=== PATIENT | male | born 1960 | race Caucasian/White ===

== ENCOUNTER 2017-01-12 08:52 | Observation (INO) ==
[2017-01-12] MEDS ORDERED: 0.9 % SODIUM CHLORIDE 1,000 ML IV ONE ×2 (09:21→17:20)
[2017-01-12] MEDS ORDERED: 0.9 % SODIUM CHLORIDE 2,000 ML IV ONE (09:27)
[2017-01-12] MEDS ORDERED: PROMETHAZINE 25 MG/ML VIAL IV ONE ×2 (09:27→12:48)
--- NOTE | 2017-01-12 09:33 | Emergency Department Note ---
Nausea/Vomiting/Diarrhea HPI - General Chief complaint: Nausea/Vomiting/Diarrhea Stated complaint: Vomiting Time Seen by Provider: 01/12/17 09:27 Source: patient Mode of arrival: ambulatory Limitations: no limitations - History of Present Illness HPI Narrative: 56-year-old male with a four-day history of nausea vomiting and diarrhea. Zofran does seem to help some but does not prevent him from throwing up whatever he tries to eat. No shortness of breath. Some heart flutter. Last bowel movement was the day after onset. Since then he's had a few diarrhea squirts but that's it - Related Data Home Medications Medication Instructions Recorded Confirmed metFORMIN HCL [Metformin HCl ER] 500 mg PO 01/10/17 Previous Rx's Medication Instructions Recorded Ondansetron HCl [Zofran ODT] 4 mg SL Q4-6HP PRN #10 tablet 01/10/17 Allergies Allergy/AdvReac Type Severity Reaction Status Date / Time No Known Drug Allergies Allergy Unverified 01/10/17 17:14 Review of Systems All systems ED: reviewed and negative except as stated. Past Medical History - Past Medical History Attestation: Yes: The following information was validated with the patient. Medical history: Reports: diabetes Surgical history ED: Reports: other (blood clots in his head when he was a baby were evacuated) - Social History smoking status: Smokeless tobacco Physical Exam Thin male no acute distress. Conjunctiva clear sclerae white and anicteric. No nasal discharge or congestion. Oropharynx is pink and moist. Neck is supple without lymphadenopathy or thyromegaly. Heart is regular rate and rhythm no murmurs appreciated. Lungs are clear to auscultation bilaterally without wheezes rales rhonchi or respiratory distress. Abdomen soft and flat nondistended. Mildly tender diffusely. No guarding or rebound. +2 radial pulses. No pedal edema. - General Limitations: no limitations Course Vital Signs Temperature 97.1 F L 01/12/17 08:53 Pulse Rate 70 01/12/17 08:53 Respiratory Rate 20 01/12/17 08:53 Blood Pressure 193/88 01/12/17 08:53 Pulse Oximetry (%) 100 01/12/17 08:53 Temperature 97.1 F L 01/12/17 08:53 Pulse Rate 78 01/12/17 10:05 Respiratory Rate 20 01/12/17 10:05 Blood Pressure 172/80 01/12/17 10:05 Pulse Oximetry (%) 100 01/12/17 10:05 Nausea/Vomiting/Diarrhea - Lab Data Result diagrams: 01/12/17 09:36 01/12/17 09:36 Lab Results 01/12/17 Range/Units 09:36 WBC 8.3 (4.5-11.0) K/mcL RBC 5.32 (4.50-5.90) M/mcL Hgb 16.4 (13.5-16.5) g/dL Hct 49.5 (41.0-55.0) % MCV 93.0 (80.0-100.0) fL MCH 30.7 (26.0-34.0) pg MCHC 33.0 (31.0-36.0) g/dL RDW 13.0 (11.5-14.5) % Plt Count 255 (140-440) K/mcL MPV 7.6 (7.4-10.4) fL Gran % 67.1 (38.0-78.0) % Lymph % (Auto) 22.0 (15.5-49.0) % [place] % (Auto) 9.6 H (1.0-9.0) % Eos % (Auto) 1.0 (0.0-7.0) % Baso % (Auto) 0.3 (0.0-2.0) % Gran # 5.5 (1.8-8.0) K/mcL Lymph # 1.8 (1.5-4.8) K/mcL [place] # 0.8 (0.1-0.9) K/mcL Eos # 0.1 (0.0-0.7) K/mcL Baso # 0 (0.0-0.3) K/mcL - Radiology Data Radiology results reviewed: Yes I reviewed the patient's radiology results. bdominal x-ray series shows nonspecific bowel gas pattern Disposition Summary: Checked patient out to Dr. Benitez for further care and evaluation Disposition: Still a Patient Condition: Undetermined
--- NOTE | 2017-01-12 10:09 | XRay Report ---
HISTORY: Reason for Exam:vomiting FINDINGS: The bowel gas pattern is normal. The lung bases are clear. No free intra-abdominal air is present. No abnormal soft tissue mass is seen. There are vascular calcifications in the pelvis and there are also calcifications in the vas deferens. IMPRESSION: Normal exam Interpreted and Authenticated by: Stevan Prieto 01/12/17
[2017-01-12 10:19] LABS: Basophils # (Auto) 0 K/mcL (0.0-0.3); Basophils % (Auto) 0.3 % (0.0-2.0); Eosinophils # (Auto) 0.1 K/mcL (0.0-0.7); Granulocytes % (Auto) 67.1 % (38.0-78.0); Lymphocytes # (Auto) 1.8 K/mcL (1.5-4.8); Mean Corpuscular Hemoglobin 30.7 pg (26.0-34.0); Monocytes # (Auto) 0.8 K/mcL (0.1-0.9); Monocytes % (Auto) 9.6 % (1.0-9.0); Platelet Count 255 K/mcL (140-440); RBC 5.32 M/mcL (4.50-5.90)
[2017-01-12 10:45] LABS: ALT/SGPT 17 U/l (0-40); Albumin 4.5 gm/dL (3.2-5.2); Albumin/Globulin Ratio 1.4 (1.0-2.3); Alkaline Phosphatase 55 U/L (39-117); Blood Urea Nitrogen 20 mg/dl (6-20); Lipase 114 U/L (7-60)
[2017-01-12 12:30] LABS: Appearance,Urine CLEAR; Bacteria,Urine 0 /hpf (0); Bilirubin,Urine NEG (NEG); Color,Urine YELLOW; Glucose,Urine (UA) >=500 mg/dL (NEG); Leukocyte Esterase,Urine NEG /uL (NEG); Mucus,Urine FEW /hpf (0); Nitrate,Urine NEG (NEG); Protein,Urine 100 mg/dL (NEG); Specific Gravity,Urine 1.026 (1.000-1.035); Urine Blood 0.2 mg/dL (<0.03); Urine Hyaline Cast 1 /lpf (0-2); Urine RBC 29 /hpf (0-1); Urine Squamous Epithelial Cell 0 /hpf (0-4); Urine WBC 3 /hpf (0-4); Urobilinogen,Urine NEG (NEG)
--- NOTE | 2017-01-12 14:08 | Emergency Department Note ---
Nausea/Vomiting/Diarrhea HPI - General Chief complaint: Nausea/Vomiting/Diarrhea Stated complaint: Vomiting Time Seen by Provider: 01/12/17 09:27 Source: patient Mode of arrival: ambulatory Limitations: no limitations - Related Data Home Medications Medication Instructions Recorded Confirmed metFORMIN HCL [Metformin HCl ER] 500 mg PO 01/10/17 Previous Rx's Medication Instructions Recorded Ondansetron HCl [Zofran ODT] 4 mg SL Q4-6HP PRN #10 tablet 01/10/17 Promethazine HCl [Phenergan] 25 mg [place] TIDP PRN #10 supp.rect 01/12/17 Allergies Allergy/AdvReac Type Severity Reaction Status Date / Time No Known Drug Allergies Allergy Unverified 01/10/17 17:14 Past Medical History - Past Medical History Medical history: Reports: diabetes Surgical history ED: Reports: other (blood clots in his head when he was a baby were evacuated) Physical Exam - General Limitations: no limitations Course Vital Signs Temperature 97.1 F L 01/12/17 08:53 Pulse Rate 70 01/12/17 08:53 Respiratory Rate 20 01/12/17 08:53 Blood Pressure 193/88 01/12/17 08:53 Pulse Oximetry (%) 100 01/12/17 08:53 Temperature 97.1 F L 01/12/17 08:53 Pulse Rate 78 01/12/17 12:54 Respiratory Rate 20 01/12/17 12:54 Blood Pressure 172/80 01/12/17 12:54 Pulse Oximetry (%) 100 01/12/17 12:54 Nausea/Vomiting/Diarrhea - MDM Narrative Medical decision making narrative: Patient of Dr. Cochran who is been observed to see female brought to keep liquids down. He's had no vomiting on the ED and given fluid resuscitation. Asystole much improved. He would like to try to go home. The amylase was elevated. He does state that he drank 4-5 beers prior to the episodes. of vomitting. No vomitting while in ED for 4-5 h.he would like to go home, but advised to return if any s/sx of dehydration - Lab Data Result diagrams: 01/12/17 09:36 01/12/17 09:36 Lab Results 01/12/17 01/12/17 01/12/17 Range/Units 09:36 09:36 11:32 WBC 8.3 (4.5-11.0) K/mcL RBC 5.32 (4.50-5.90) M/mcL Hgb 16.4 (13.5-16.5) g/dL Hct 49.5 (41.0-55.0) % MCV 93.0 (80.0-100.0) fL MCH 30.7 (26.0-34.0) pg MCHC 33.0 (31.0-36.0) g/dL RDW 13.0 (11.5-14.5) % Plt Count 255 (140-440) K/mcL MPV 7.6 (7.4-10.4) fL Gran % 67.1 (38.0-78.0) % Lymph % (Auto) 22.0 (15.5-49.0) % [place] % (Auto) 9.6 H (1.0-9.0) % Eos % (Auto) 1.0 (0.0-7.0) % Baso % (Auto) 0.3 (0.0-2.0) % Gran # 5.5 (1.8-8.0) K/mcL Lymph # 1.8 (1.5-4.8) K/mcL [place] # 0.8 (0.1-0.9) K/mcL Eos # 0.1 (0.0-0.7) K/mcL Baso # 0 (0.0-0.3) K/mcL Sodium 139 (133-145) mmol/L Potassium 3.4 (3.3-5.1) mmol/L Chloride 92 L (96-108) mmol/L Carbon Dioxide 22 (22-30) mmol/L Anion Gap 25.0 H (8-16) BUN 20 (6-20) mg/dl Creatinine 0.8 (0.7-1.2) mg/dl GFR Calculation 101 Glucose 210 H (70-105) mg/dL Calcium 8.8 (8.6-10.4) mg/dl Total Bilirubin 1.2 H (0.0-1.0) mg/dL AST 18 (0-37) U/l ALT 17 (0-40) U/l Alkaline Phosphatase 55 (39-117) U/L Total Protein 7.7 (5.9-8.4) gm/dL Albumin 4.5 (3.2-5.2) gm/dL Globulin 3.2 (2.2-3.7) gm/dL Albumin/Globulin Ratio 1.4 (1.0-2.3) Lipase 114 H (7-60) U/L Urine Color Yellow Urine Appearance Clear Urine pH 5.0 (5.0-9.0) Ur Specific [place] 1.026 (1.000-1.035) Urine Protein 100 A (NEG) mg/dL Urine Glucose (UA) >=500 A (NEG) mg/dL Urine Ketones 80 A (NEG) mg/dL Urine Occult Blood 0.2 A (<0.03) mg/dL Urine Nitrate Neg (NEG) Urine Bilirubin Neg (NEG) mg/dL Urine Urobilinogen Neg (NEG) mg/dL Ur Leukocyte Esterase Neg (NEG) /uL Urine RBC 29 H (0-1) /hpf Urine WBC 3 (0-4) /hpf Ur Squamous Epith Cells 0 (0-4) /hpf Urine Bacteria 0 (0) /hpf Hyaline Casts 1 (0-2) /lpf Urine Mucus Few (0) /hpf Ur Culture Indicated? No Disposition Clinical Impression: Pancreatitis Disposition: Home, Self-Care Condition: Good Instructions: Pancreatitis (ED) Additional Instructions: increase fluids phenergan supp as needed or use the zofran as rx earlier. Prescriptions: Promethazine HCl [Phenergan] 25 mg [place] TIDP PRN #10 supp.rect PRN Reason: Nausea And Vomiting
[2017-01-12] MEDS ORDERED: ONDANSETRON 4 MG/2 ML VIAL IV PRN (14:58)
[2017-01-12] MEDS: 0.9 % SODIUM CHLORIDE 1,000 ML IV SCH (18:32)
--- NOTE | 2017-01-12 18:46 | History and Physical Report ---
DATE OF ADMISSION: 01/12/2017 REASON FOR ADMISSION: Recurrent nausea, vomiting, second ER visit, failed outpatient treatment. HISTORY OF CHIEF COMPLAINT: The patient is a 56-year-old who resides in [place] and is visiting [employer], working at [employer], helping them wind down. Over the last 4 days, the patient has had worsening symptoms including recurrent nausea, loss of appetite, associated diarrhea, abdominal pain, and recurrent heaving. He denies excessive alcoholism. His last drink was on Wednesday. He however drinks occasionally. He denies medication changes. He denies any associated fever, chills, bloody stool, bloody urine, or bloody emesis. He further denies abdominal distention with increasing weakness, fatigue and progressive nausea. He was evaluated in the ER and was subsequently discharged after fluids and antiemetics, but patient failed to get any relief post discharge and he came a second time to the ER. Subsequently, hospitalist service was consulted for observation. At the time of examination, the patient is alert and oriented. He denies active distress except for recurrent heaving. Biochemical profile was unremarkable except for anion gap of 25 and lipase of 114. Other than that, the patient denies any other symptoms on 10-point review of systems. PAST MEDICAL HISTORY: History of diabetes. CURRENT MEDICATIONS: Metformin, the patient has not been taking. SOCIAL HISTORY: The patient lives in [place]. He is visiting for work. Occasional alcohol use. No history of smoking. CODE STATUS: FULL CODE. ALLERGIES: NONE SIGNIFICANT. FAMILY HISTORY: Significant for uncle with cirrhosis and father with skin cancer. PHYSICAL EXAMINATION: GENERAL: The patient is alert, oriented, in moderate distress. BMI 24. Height 5 feet 7 inches. VITAL SIGNS: Blood pressure , respiratory rate 13, temperature 98.5, pulse 73, saturation is 98 percent on room air. HEENT: Pupils symmetric. Oral cavity is dry. No ear or nose discharge. Head is normocephalic and atraumatic. NECK: No lymphadenopathy. HEART: S1, S2, regular rhythm. No murmur appreciated. CHEST: Clear to auscultation. ABDOMEN: Soft and nontender. LOWER EXTREMITIES: No cyanosis or clubbing. No joint swelling. SKIN: No suspicious lesions. PSYCH: Alert and cooperative, mild anxiety. NEURO: Nonfocal. LABS AND IMAGING: Sodium 139, potassium 3.4, creatinine 0.8, BUN 20, anion gap 25, lipase 114. UA unremarkable. White count 8.3, hemoglobin 16.4, platelets 255. X-ray of abdomen unremarkable. ASSESSMENT AND PLAN: 1. A 56-year-old admitted with intractable nausea and vomiting, likely acute gastroenteritis. 2. Acute gastroenteritis, nausea, vomiting. Continue supportive management, crystalloids, antiemetics. 3. Anion gap acidosis, likely secondary to starvation ketosis in light of inability to take oral diet. Advance to clear liquids followed by a soft, nonfat diet as tolerated. 4. History of diabetes mellitus, type 2. Continue sliding scale insulin. PLAN FOR TODAY: 1. Admit as observation. 2. Antiemetics, crystalloids. 3. Discharge once patient clinically stable. AA: Job ID: [id number] Doc ID: [id number] Ortega Phillips MD MTDD
[2017-01-13] MEDS ORDERED: HYDROmorphone 2 MG/ML SYRINGE IV PRN (01:04)
[2017-01-13] MEDS: ACETAMINOPHEN 1,000 MG/100 ML BOTTLE IV PRN ×2 (01:13→10:09)
[2017-01-13] MEDS: 0.9 % SODIUM CHLORIDE 1,000 ML IV SCH ×2 (04:37→14:52)
[2017-01-13] MEDS ORDERED: PANTOPRAZOLE 40 MG TABLET PO ONE (10:14)
--- NOTE | 2017-01-13 11:53 | Internal Med Progress Note ---
Medical - PN: Subj Patient information: Note initiated : 01/13/17 at 11:51 am Service Date, if different from initiated Date: [] Patient: Constantine White 56 y/o M admitted on 01/12/17 for Vomiting. Chief Complaint: [] Interval history: 01/12-intractable nausea vomiting and unable to tolerate oral diet. possible acute viral gastroenteritis. on supportive management including crystalloids and antiemetics. 01/13- symptomatic improvement noted. Continue crystalloids PPI/antiemetics. Advance diet as tolerated. Possible discharge in 24 hours - Constitutional Vitals: Vital Signs Temp Pulse Resp BP Pulse Ox 98.5 F 84 12 152/77 96 01/13/17 07:48 01/13/17 07:48 01/13/17 07:48 01/13/17 07:48 01/13/17 07:48 Period Temp Pulse Resp BP Sys/Lozano Pulse Ox Last 24 Hr 98.0 F-98.5 F 71-84 12-16 117-152/69-82 96-98 Intake and Output 01/12/17 01/13/17 01/13/17 21:59 05:59 13:59 Intake Total 1090 / 1090 1175 / 1175 2000 / 2000 Output Total 500 / 500 1100 / 1100 400 / 400 Balance 590 / 590 75 / 75 1600 / 1600 Weight 154 lb Intake & Output: Intake & Output 01/12/17 01/13/17 01/13/17 21:59 05:59 13:59 Intake Total 1090 / 1090 1175 / 1175 2000 / 2000 Output Total 500 / 500 1100 / 1100 400 / 400 Balance 590 / 590 75 / 75 1600 / 1600 Weight 154 lb Intake: IV 1000 / 1000 1100 / 1100 2000 / 2000 Sodium Chloride 0.9% 1, 1000 / 1000 1000 / 1000 000 ml @ 100 mls/hr IV . Q10H [facility] Rx#:[id number] Oral 90 / 90 75 / 75 Output: Urine Catheter Amount 450 / 450 Void Amount 500 / 500 650 / 650 400 / 400 Other: Meal jello Percent of Meal Consumed 100% Feeding Ability Independent Medical - PN: Obj Da - Labs CBC & Chem 7: 01/12/17 09:36 01/12/17 09:36 Meds: Medications Hydromorphone HCl (Dilaudid) 0.5 mg IV Q4HP PRN PRN Reason: Pain Sodium Chloride (Sodium Chloride 0.9%) 1,000 mls @ 100 mls/hr IV .Q10H [facility] Last Admin: 01/13/17 04:37 Dose: 100 mls/hr Acetaminophen (Ofirmev) 1,000 mg in 100 mls @ 200 mls/hr IV Q6HP PRN PRN Reason: PAIN/FEVER > 101 Last Admin: 01/13/17 10:09 Dose: 100 mls/hr Ondansetron HCl (Zofran) 4 mg IV Q4HP PRN PRN Reason: Nausea And Vomiting Last Admin: 01/13/17 00:46 Dose: 4 mg Pantoprazole Sodium (Protonix) 40 mg PO BIDAC [facility] Medical - PN: A/P - Time Spent With Patient Total time spent is greater than 50% in coordination of care (as documented) at patient's floor/unit and/or counseling patient: 15 - 24 minutes (1) Intractable nausea and vomiting Status: Acute Assessment and plan: * Intractable nausea vomiting-clinically improving. Likely acute gastroenteritis. Continue crystalloids/PPI/antiemetics * Acute pancreatitis-mild elevation in lipase- Clinically improving. Right upper quadrant ultrasound to rule out gallstone pancreatitis plan * Crystalloids and antiemetics * PPI * gallbladder ultrasound Current Visit: Yes Medical - PN: Qual - VTE Deep Vein Thrombosis/Pulmonary Embolism Present on Admission: No
[2017-01-13 13:10] LABS: Mean Cell Volume 90.2 fL (80.0-100.0); Mean Corpuscular HGB Conc 34.6 g/dL (31.0-36.0); Mean Corpuscular Hemoglobin 31.2 pg (26.0-34.0); Platelet Count 192 K/mcL (140-440); RBC 4.38 M/mcL (4.50-5.90); Red Cell Distribution Width 11.6 % (11.5-14.5)
[2017-01-13 13:21] LABS: ALT/SGPT 11 U/l (0-40); Albumin 3.5 gm/dL (3.2-5.2); Albumin/Globulin Ratio 1.5 (1.0-2.3); Alkaline Phosphatase 38 U/L (39-117); Bilirubin,Direct < 0.2 mg/dL (0.0-0.3); Blood Urea Nitrogen 11 mg/dl (6-20); Gamma Glutamyl Transpeptidase 20 U/L (8-61)
[2017-01-13 14:14] LABS: Lymphocytes % 37 % (15-49); Monocytes % (Manual) 13 % (1-9); Platelet Estimate NORMAL (NORMAL); RBC Morphology NORMAL (NORMAL); Segmented Neutrophils % 50 % (38-78)
--- NOTE | 2017-01-13 14:54 | Ultrasound Report ---
History: Choledocholithiasis Findings: The liver is normal in size and homogeneous. There is no evidence of mass or infiltrative process. Doppler shows normal blood flow in the hepatic and portal veins. The head and body the pancreas are normal. The tail is partially obscured by bowel gas. Gallbladder is normal in size and the wall measures 1.9 mm in thickness. There is a 4 mm polyp within the lumen of the gallbladder. No gallstones are present and there is no para cholecystic fluid collection. The proximal common bile duct is 5.3 mm. The distal portion of the duct, in the head of the pancreas is 4.3 mm. No stone is identified within the bile ducts. The patient was nontender while scanning over the gallbladder. No mass or abnormal fluid collection are present in the right upper quadrant. Impression: Normal bile ducts Small polyp in the gallbladder Interpreted and Authenticated by: Stevan Prieto 01/13/17
[2017-01-13] MEDS ORDERED: PANTOPRAZOLE 40 MG TABLET PO SCH (17:00)
--- NOTE | 2017-01-13 18:52 | Discharge Summary ---
Discharge Plan - Patient/Caregiver Discharge Instructions Discharge Summary: Please refer to progress note dated 01/13 for details Patient feels at baseline, requesting discharge Activity: increase activity as tolerated, resume usual activities as tolerated Diet: Regular Diet Additional Instructions: Advance diet as tolerated Protonix daily Prescriptions: Pantoprazole [Protonix] 40 mg PO DAILY #30 tablet - Follow up Plan Disposition: Home, Self-Care Prognosis: Fair Rehab Potential: Fair I certify that the patient requires SNF services.: No Overall status at discharge: patient is back to baseline
[2017-01-14] MEDS ORDERED: FLU VACC QS2016-17 36MOS UP/PF 60 MCG/0.5 ML SYRINGE IM ONE (10:00)
== END 2017-01-13 19:32 | disposition home or self-care (01) ==
LOC: ED 08:52 → MEDSUR 08:52
PROVIDERS: ADMIT Internal Medicine; ATTEND Internal Medicine